=== PATIENT | male | born 2000 | race Two or more races ===

== ENCOUNTER 2019-01-08 12:56 | Emergency (ER) | payer OTHER ==
[~2019-01-08] VITALS: Ht 160 cm; Wt 56.8 kg
[2019-01-08] MEDS ORDERED: IBUPROFEN 400 MG TABLET PO ONE (14:00)
[2019-01-08 14:21] VITALS: BP 139/95
== END 2019-01-08 14:24 | disposition home or self-care (01) ==
LOC: EMS 12:59
DX: S30.0XXA Contusion of lower back and pelvis, initial encounter (principal); F17.210 Nicotine dependence, cigarettes, uncomplicated; F12.90 Cannabis use, unspecified, uncomplicated; V00.141A Fall from scooter (nonmotorized), initial encounter; Y93.89 Activity, other specified; Y92.89 Other specified places as the place of occurrence of the external cause; Y99.8 Other external cause status
CPT/HCPCS: 99406

== ENCOUNTER 2020-10-02 00:13 | Emergency (ER) | payer OTHER ==
[~2020-10-02] VITALS: Ht 165.1 cm; Wt 55.0 kg
[2020-10-02 01:55] VITALS: BP 117/66
[2020-10-02] MEDS ORDERED: OxyCODONE HCL 5 MG IR TABLET PO ONE (02:00)
== END 2020-10-02 02:08 | disposition home or self-care (01) ==
LOC: EMS 00:14
DX: K75.9 Inflammatory liver disease, unspecified (principal); R10.9 Unspecified abdominal pain; F17.210 Nicotine dependence, cigarettes, uncomplicated; F12.90 Cannabis use, unspecified, uncomplicated
CPT/HCPCS: 99283

== ENCOUNTER 2022-07-25 15:07 | Emergency (ER) | payer OTHER ==
[~2022-07-25] VITALS: Ht 162.6 cm; Wt 56.8 kg
[2022-07-25 17:26] VITALS: BP 115/74
[2022-07-25 17:26] LABS: COVID AG,FIA SOURCE NASOPHARYNGEAL
[2022-07-25 17:43] LABS: RAPID GROUP A STREP NEGATIVE (NEGATIVE)
[2022-07-25 17:45] LABS: INFLUENZA TYPE A NEGATIVE FOR TYPE A (NEGATIVE); INFLUENZA TYPE B NEGATIVE FOR TYPE B (NEGATIVE)
[2022-07-25] MEDS ORDERED: IBUPROFEN 600 MG TABLET PO ONE (17:45)
== END 2022-07-25 18:37 | disposition home or self-care (01) ==
LOC: EMS 15:08
DX: J02.9 Acute pharyngitis, unspecified (principal); F17.210 Nicotine dependence, cigarettes, uncomplicated; F12.90 Cannabis use, unspecified, uncomplicated; Z90.49 Acquired absence of other specified parts of digestive tract; Z20.822 Contact with and (suspected) exposure to COVID-19
CPT/HCPCS: 86308; 87430; 87804; 99283

== ENCOUNTER 2022-09-15 12:15 | Emergency (ER) | payer OTHER ==
[~2022-09-15] VITALS: Ht 165.1 cm; Wt 65.9 kg
[2022-09-15] MEDS ORDERED: FAMOTIDINE 10 MG/ML 2 ML VIAL ONE ×2 (12:45→12:49)
[2022-09-15] MEDS ORDERED: FAMOTIDINE 40 MG in SODIUM CHLORIDE 0.9% 100 ML IV ONE (12:45)
[2022-09-15] MEDS ORDERED: SODIUM CHLORIDE 0.9% 1,000 ML IV ONE (12:45)
[2022-09-15] MEDS ORDERED: METOCLOPRAMIDE HCL 5 MG/ML 2 ML VIAL IVP ONE (12:45)
[2022-09-15] MEDS ORDERED: HALOPERIDOL LACTATE 5 MG/ML VIAL IVP ONE (12:45)
[2022-09-15] MEDS ORDERED: METOCLOPRAMIDE HCL 5 MG/ML 2 ML VIAL ONE (12:45)
[2022-09-15] MEDS ORDERED: SODIUM CHLORIDE 0.9% 100 ML ONE (12:49)
[2022-09-15 12:56] LABS: BASOPHILS % (AUTO) 0.1 % (0.0-2.0); EOSINOPHILS % (AUTO) 0 % (1.0-6.0); HEMATOCRIT 47.4 % (41-53); HEMOGLOBIN 16.5 g/dL (13.5-17.5); LYMPHOCYTES # (AUTO) 1.1 K/uL (1.0-4.8); MEAN CORPUSCULAR HEMOGLOBIN 27.9 pg (26.0-34.0); MEAN CORPUSCULAR HGB CONC 34.7 G/dL (31.0-37.0); MEAN CORPUSCULAR VOLUME 80 fL (80-100); MONOCYTES # (AUTO) 0.4 K/uL (0.1-1.0); MONOCYTES % (AUTO) 2.4 % (2.0-9.0); NEUTROPHILS # (AUTO) 16.8 K/uL (1.8-7.7); PLATELET COUNT (AUTO) 207 K/uL (150-450); RED BLOOD CELL COUNT(AUTO) 5.91 MIL/uL (4.50-5.90); RED CELL DISTRIBUTION WIDTH 14.3 % (11.5-14.5)
[2022-09-15 12:57] LABS: NEUTROPHILS % (AUTO) 91.5 % (40.0-70.0)
[2022-09-15 13:05] LABS: ANION GAP 26 mmol/L (8-16); CARBON DIOXIDE 15 mmol/L (22-29); CHLORIDE 101 mmol/L (98-107); CREATININE 1.06 mg/dL (0.60-1.30); GLOMERULAR FILTR. RATE CALC > 60 mL/min (>60); GLUCOSE,RANDOM 89 mg/dL (70-110); POTASSIUM 3.9 mmol/L (3.5-5.1); SODIUM SERUM 142 mmol/L (136-145)
[2022-09-15 13:11] LABS: ALANINE AMINOTRANSFERASE 41 U/L (12-78); ALBUMIN 5.1 g/dL (3.4-5.0); ALKALINE PHOSPHATASE 101 U/L (46-116); ASPARTATE AMINOTRANSFERASE 37 U/L (15-37); BILIRUBIN,TOTAL 1.1 mg/dL (0.1-1.0); LIPASE 59 U/L (73-393); TOTAL PROTEIN, SERUM 8.6 g/dL (6.4-8.2)
[2022-09-15 15:58] LABS: APPEARANCE,URINE CLEAR (CLEAR); BILIRUBIN,URINE NEGATIVE (NEGATIVE); GLUCOSE, URINE (UA) NEGATIVE (NEGATIVE); KETONES,URINE =>150 mg/dL (NEGATIVE); LEUKOCYTE ESTERASE ,URINE NEGATIVE (NEGATIVE); NITRATE,URINE NEGATIVE (NEGATIVE); OCCULT BLOOD,URINE NEGATIVE (NEGATIVE); PH,URINE 5.5 (5.0-8.0); PROTEIN,URINE 30-70 mg/dL (NEGATIVE); SPECIFIC GRAVITIY, URINE 1.027 (1.003-1.030); UROBILINOGEN,URINE <=1.0 mg/dL (<=1.0)
[2022-09-15 17:00] VITALS: BP 129/66
== END 2022-09-15 17:13 | disposition home or self-care (01) ==
LOC: EMS 12:18
DX: K29.20 Alcoholic gastritis without bleeding (principal); F10.10 Alcohol abuse, uncomplicated; F17.210 Nicotine dependence, cigarettes, uncomplicated; F12.90 Cannabis use, unspecified, uncomplicated; Z90.49 Acquired absence of other specified parts of digestive tract; Z98.890 Other specified postprocedural states; Y90.9 Presence of alcohol in blood, level not specified
CPT/HCPCS: 99284; 96365; 96375; 80053; 81003; 83690; 85025; 36415; J3490; J2765; J7030; J7050; J1630

== ENCOUNTER 2023-06-14 12:18 | Emergency (ER) | payer OTHER ==
[~2023-06-14] VITALS: Ht 165.1 cm; Wt 56.8 kg
[2023-06-14 12:41] VITALS: BP 136/83; PULSE 68; RESP 16; TEMP 97.2
== END 2023-06-14 18:58 | disposition left against medical advice (07) ==
LOC: EMS 12:18
DX: K64.9 Unspecified hemorrhoids (principal); F17.210 Nicotine dependence, cigarettes, uncomplicated; F12.90 Cannabis use, unspecified, uncomplicated; Z90.49 Acquired absence of other specified parts of digestive tract; Z98.890 Other specified postprocedural states
CPT/HCPCS: 99281; Z7502